=== PATIENT | female | born 1995 | race Caucasian/White ===

== ENCOUNTER 2018-03-19 01:21 | Emergency (ER) | payer OTHER ==
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
[2018-03-19] MEDS ORDERED: Ondansetron ODT TAB* 4 MG PO ONE (02:04)
[2018-03-19] MEDS ORDERED: NS 0.9% 1000 ML* 2,000 ML IV ONE (02:42)
[2018-03-19] MEDS ORDERED: Ondansetron INJ* 2 MG/ML VIAL IV ONE (02:42)
[2018-03-19] MEDS ORDERED: Ketorolac INJ* 30 MG/ML 1 ML VIAL IV PUSH ONE (02:48)
[2018-03-19] MEDS ORDERED: Ketorolac INJ* 30 MG/ML 1 ML VIAL ONE (02:49)
[2018-03-19 02:58] LABS: ABS Basophils 0 10^3/ul (0-0.2); ABS Eosinophils 0.1 10^3/ul (0-0.6); ABS Lymphocytes 2.5 10^3/ul (1.0-4.8); ABS Monocytes 0.6 10^3/ul (0-0.8); ABS Neutrophils 4.6 10^3/ul (1.5-7.7); ABS Nucleated RBC 0 10^3/ul; Eosinophil % 1.2 % (0-6); Hematocrit 33 % (35-47); Hemoglobin 11.1 g/dl (12.0-16.0); Lymphocyte % 31.9 % (25-47); Mean Corpuscular HGB Conc 34 g/dl (31-36); Mean Corpuscular Hemoglobin 32 pg (27-31); Mean Corpuscular Volume 94 fL (80-97); Mean Platelet Volume 7.8 um3 (7.4-10.4); Nucleated Red Blood Cells % 0; Platelet Count 271 10^3/ul (150-450); Red Blood Count 3.53 10^6/ul (4.00-5.40); Red Cell Distribution Width 13 % (10.5-15); White Blood Count 7.8 10^3/ul (3.5-10.8)
--- NOTE | 2018-03-19 03:24 | RAD ---
EXAM: CT Head Without Intravenous Contrast EXAM DATE/TIME: 03/19/2018 2:23 AM CLINICAL HISTORY: 22 years old, female; Injury or trauma; Fall; Additional info: Head injury TECHNIQUE: Axial computed tomography images of the head/brain without intravenous contrast. All CT scans at this facility use at least one of these dose optimization techniques: automated exposure control; mA and/or kV adjustment per patient size (includes targeted exams where dose is matched to clinical indication); or iterative reconstruction. COMPARISON: No relevant prior studies available. FINDINGS: Brain: Normal. No hemorrhage. No significant white matter disease. No edema. Ventricles: Normal. No ventriculomegaly. Bones/joints: Normal. No acute fracture. Sinuses: Moderate opacification of the visualized left maxillary sinus. Minimal mucosal thickening of ethmoidal air cells. Mastoid air cells: Normal as visualized. No mastoid effusion. Soft tissues: Normal. IMPRESSION: No intracranial abnormality. To contact [facility] with a general question: [facility] - [phone] For direct physician to physician contact: Physician Hotline - [phone] [facility] ([facility] Facility ID #[id number])
[2018-03-19 04:04] VITALS: BP 101/59
== END 2018-03-19 04:04 | disposition home or self-care (01) ==
LOC: ED 01:21
DX: S09.90XA Unspecified injury of head, initial encounter (principal); Y04.2XXA Assault by strike against or bumped into by another person, initial encounter; Y92.9 Unspecified place or not applicable; R11.0 Nausea
CPT/HCPCS: 36415; 70450; 80053; 80320; 84702; 85025; 96374; 96375; 99282; A9270-GY; G0480; J1885; J2405